=== PATIENT | male | born 1985 | race American Indian/Alaskan Native ===

== ENCOUNTER 2017-04-17 09:31 | Emergency (ER) | payer BC ==
[2017-04-17 09:35] VITALS: TEMP 97.4
[2017-04-17] MEDS ORDERED: Albuterol-Ipratrop 3 mg / 0.5 (3 ml) UD IH STA (09:58)
[2017-04-17 10:00] VITALS: RESP 18
[2017-04-17] MEDS ORDERED: Albuterol-Ipratrop 3 mg / 0.5 (3 ml) UD ONE ×2 (10:05→10:40)
[2017-04-17] MEDS: Albuterol-Ipratrop 3 mg / 0.5 (3 ml) UD IH SCH ×2 (10:50→11:13)
--- NOTE | 2017-04-17 10:51 | RAD ---
HISTORY: Cough, SOB COMPARISON: No prior. TECHNIQUE: Chest PA and lateral FINDINGS: LUNGS: Right apical pleural thickening. Hyperinflation of the lung wallace suggestive for possible emphysematous changes. Mild peribronchial cuffing in the right suprahilar region. PLEURA: No significant pleural effusion identified. No pneumothorax apparent. CARDIOVASCULAR: Normal. OSSEOUS STRUCTURES: No significant abnormalities. VISUALIZED UPPER ABDOMEN: Normal. OTHER FINDINGS: None. IMPRESSION: Right apical pleural thickening. Hyperinflation of the lung wallace suggestive for possible emphysematous changes. Mild peribronchial cuffing in the right suprahilar region.
[2017-04-17 12:01] VITALS: BP 119/71; PULSE 75; O2SAT 96
--- NOTE | 2017-04-17 12:20 | C.PDOC ---
Time Seen by Provider: 04/17/17 09:52 Chief Complaint (Nursing): Shortness Of Breath History Per: Patient, Family Onset/Duration Of Symptoms: Days Current Symptoms Are (Timing): Worse Initiating Event: Other (Environmental allergies) Current Respiratory Medications: See Home Med List, Albuterol Severity: Moderate Associated Symptoms: Productive Cough Past Medical History Reviewed: Historical Data, Nursing Documentation, Vital Signs Vital Signs: Last Vital Signs Temp 97.4 F L 04/17/17 09:33 Pulse 75 04/17/17 12:00 Resp 18 04/17/17 12:00 BP 119/71 04/17/17 12:00 Pulse Ox 96 04/17/17 12:00 - Medical History PMH: Asthma Surgical History: No Surg Hx Family History: States: Unknown Family Hx - Social History Hx Tobacco Use: No Hx Alcohol Use: Yes Hx Substance Use: No - Immunization History Hx Tetanus Toxoid Vaccination: No Hx Influenza Vaccination: Yes Hx Pneumococcal Vaccination: No Review Of Systems Except As Marked, All Systems Reviewed And Found Negative. Constitutional: Negative for: Fever, Weakness ENT: Positive for: Nose Congestion (sneezing) Cardiovascular: Negative for: Chest Pain Respiratory: Positive for: Cough, Shortness of Breath, Wheezing. Negative for: Hemoptysis Gastrointestinal: Negative for: Vomiting, Abdominal Pain Musculoskeletal: Negative for: Neck Pain Skin: Negative for: Rash Neurological: Negative for: Weakness, Numbness Physical Exam - Physical Exam Appears: Non-toxic, No Acute Distress Skin: Normal Color, Warm, Dry, No Rash Head: Atraumatic, Normacephalic Eye(s): bilateral: Normal Inspection, PERRL, EOMI Throat: Erythema, No Exudate, No Drooling, No Mass Neck: Normal ROM, Supple Lymphatic: No Adenopathy Cardiovascular: Rhythm Regular Respiratory: No Accessory Muscle Use, Wheezing Gastrointestinal/Abdominal: Soft, No Tenderness Back: No CVA Tenderness Extremity: Normal ROM, No Pedal Edema, No Calf Tenderness Neurological/Psych: Oriented x3, Normal Speech, Normal Motor, Normal Sensation ED Course And Treatment O2 Sat by Pulse Oximetry: 96 Pulse Ox Interpretation: Normal - Radiology CXR: Viewed By Me, Read By Radiologist CXR Interpretation: Yes: COPD. No: Infiltrates Progress Note: Peak flow improved to 400. Pt feels much better and wants to go home. No SOB. Reassessment Condition: Improved Progress - Interventions Interventions:: Observation - Medications Administered Oral: Corticosteriod Inhaled nebulized: Anticholinergic, Beta-2 agonist - Data Reviewed Data Reviewed: Diagnostic imaging, Old records - Patient Status Patient status: Mostly improved - Critical Care Citical Care: Excluding Proc Time Critical Care Time: 45 minutes - Continuity of Care Discussed patient case with:: Patient, Family-HIPPA compliant, ED Nurse - Patient Plan Patient Plan: Discharge, F/U with PCP, Continue present meds Disposition Counseled Patient/Family Regarding: Studies Performed, Diagnosis, Need For Followup, Rx Given - Disposition Disposition: HOME/ ROUTINE Disposition Time: 12:21 Condition: IMPROVED Additional Instructions: Follow up with a primary doctor for further evaluation and treatment. Avoid smoke. Take a daily antihistamine during allergy season. Return to the ER if you develop fever, shortness of breath, chest pain, worsening of symptoms or if you have any other concerns. Prescriptions: Albuterol HFA [Ventolin HFA 90 mcg/actuation (8 g)] 2 puff IH Q4 PRN #1 unit PRN Reason: Wheezing predniSONE [predniSONE Tab] 2 tab PO DAILY #8 tab Instructions: Asthma (ED) Forms: [facility] (Citizen [place]) - Clinical Impression Clinical Impression: Asthma exacerbation
== END 2017-04-17 12:35 | disposition home or self-care (01) ==
LOC: C.ER 09:31
DX: J45.901 Unspecified asthma with (acute) exacerbation (principal)